=== PATIENT | male | born 1945 | race Caucasian/White ===

== ENCOUNTER 2021-12-04 14:18 | Day surgery (SDC) | payer OTHER ==
[2021-11-29 15:45] LABS: BASOPHILS % (AUTO) 0.6 % (0-1); EOSINOPHILS # (AUTO) 0.2 X10'3 (0-0.9); EOSINOPHILS % (AUTO) 2.5 % (0-6); LYMPHOCYTES # (AUTO) 1.7 X10'3 (1.1-4.8); LYMPHOCYTES % (AUTO) 25.8 % (21-51); MEAN CORPUSCULAR HEMOGLOBIN 32.2 PG (27.0-31.0); MEAN CORPUSCULAR VOLUME 97.6 FL (78-98); MEAN PLATELET VOLUME 8.2 FL (7.4-10.4); MONOCYTES # (AUTO) 0.6 X10'3 (0-0.9); MONOCYTES % (AUTO) 9.2 % (2-12); NEUTROPHILS # (AUTO) 4.2 X10'3 (1.8-7.7); NEUTROPHILS % (AUTO) 61.9 % (42-75); PRE OP HEMATOCRIT 40.8 % (42.0-52.0); PRE OP HEMOGLOBIN 13.5 g/dL (14.0-17.9); PRE OP PLATELET COUNT 254 X10'3 (140-440); RED BLOOD COUNT 4.18 X10'6 (4.70-6.10); RED CELL DISTRIBUTION WIDTH 14.4 % (11.5-14.5)
[2021-11-29 15:53] LABS: ALBUMIN 3.9 G/DL (3.4-5.0); ALBUMIN/GLOBULIN RATIO 1.4 (1.1-1.5); ALKALINE PHOSPHATASE 77 IU/L (46-116); BLOOD UREA NITROGEN 16 MG/DL (7-18); BUN/CREATININE RATIO 15.7 (5.4-32.0); CALCIUM 9.1 MG/DL (8.5-10.1); CHLORIDE 107 MMOL/L (99-107); CREATININE 1.02 MG/DL (0.60-1.10); PRE OP ALT 31 U/L (30-65); PRE OP ANION GAP 11 (8-16); PRE OP AST 28 U/L (10-37); PRE OP BILIRUB, TOTAL 0.2 MG/DL (0.0-1.0); PRE OP GLUCOSE 88 MG/DL (70-104); PRE OP POTASSIUM 4.7 MMOL/L (3.4-5.1); PRE OP SODIUM 145 MMOL/L (135-145); TOTAL CARBON DIOXIDE 27.5 MMOL/L (24-32); TOTAL PROTEIN 6.7 G/DL (6.4-8.2); eGFR 71 ML/MIN
[2021-12-04] VITALS (16 sets, daily range): BP systolic 134–152; BP diastolic 68–92
[~2021-12-04] VITALS: Ht 177.8 cm; Wt 68.0 kg
[~2021-12-04 14:18] MED LIST: AMLO2.5T2 PO; BUPR150T8 PO; albuterol 2.5 MG/3 ML nebule NEB ONE; cefazolin/dext.iso 2gm/50ml IV ONE; famotidine 20mg tablet PO ONE; ringers solution, lacted 1,000 ML IV SCH
[2021-12-04] MEDS ORDERED: hydrALAZINE 20mg/ml inj. IV PRN (14:55)
[2021-12-04] MEDS ORDERED: morphine 4 MG/ML inj SYRINge IV PRN (14:55)
[2021-12-04] MEDS ORDERED: labetalol 20mg/4ml (5mg/ml) syringe IV PRN (14:55)
[2021-12-04] MEDS ORDERED: ondansetron/PF 4mg/2ml inj IV PRN (14:55)
[2021-12-04] MEDS ORDERED: ringers solution, lacted 1,000 ML IV SCH (14:55)
[2021-12-04] MEDS ORDERED: morphine 2 MG/ML inj. syringe IV PRN (14:55)
[2021-12-04] MEDS ORDERED: fentaNYL/PF 50MCG/1 ML 2ML syringe IV PRN ×2 (14:55)
[2021-12-04] MEDS ORDERED: BUPIVAcaine 0.5% inj/PF 30 ML ONE (17:02)
[2021-12-04] MEDS ORDERED: LIDOcaine 1% 30ml preserv. free vial ONE (17:02)
[2021-12-04] MEDS ORDERED: neostigmine methylsulfate 1 MG/ML 10ml vial ONE (17:41)
[2021-12-04] MEDS ORDERED: dexamethasone sod phosphate 10mg/ml inj ONE (17:41)
[2021-12-04] MEDS ORDERED: sevoflurane 250ml liquid IH ONE (17:41)
[2021-12-04] MEDS ORDERED: midazolam 1 mg/ML 2ml injection ONE (17:49)
[2021-12-04] MEDS ORDERED: fentaNYL/PF 50MCG/1 ML 2ML syringe ONE (17:49)
[2021-12-04] MEDS ORDERED: propofol inj 20 ML IV ONE (17:55)
[2021-12-04] MEDS ORDERED: LIDOcaine 2% (20mg/ml) 5ml vial ONE (17:55)
[2021-12-04] MEDS ORDERED: rocuronium 10mg/ml inj IV ONE (17:56)
[2021-12-04] MEDS ORDERED: glycopyrrolate 0.2mg/ml inj ONE ×2 (17:57→17:59)
[2021-12-04] MEDS ORDERED: ondansetron/PF 4mg/2ml inj ONE (17:57)
--- NOTE | 2021-12-04 19:20 | NUR ---
Received from OR via [facility], accompanied by Anesthesiologist DR ELLER and report given by Anesthesiologist. PT DROWSY, NO S/S OF DISTRESS/DISCOMFORT. ABDOMEN W/3 LAP SITES W/BANDAIDS CDI. Addendum: 12/04/21 at 1946 by Keisha Patterson RN Amended: Links added.
[2021-12-04] MEDS ORDERED: HYDROcodone/acetaminophen 5mg/325mg tablet PO PRN (19:30)
--- NOTE | 2021-12-04 21:19 | NUR ---
PT AWAKE, VSS. REPORT TO RECEIVING ERNESTO CAMP.
--- NOTE | 2021-12-04 21:20 | NUR ---
ASSUMED CARE OF PT. VVS. AWAKE AND ALERT. BANDAIDS TO ABD CDI. ADB SOFT. PT DENIES PAIN AT THIS TIME. PO FLUIDS AND SNACK GIVEN. DENIES URGE TO VOID. IV LEFT HAND PATENT.
--- NOTE | 2021-12-04 22:10 | NUR ---
UP AMB TO BR, VOID STRONG STREAM LARGE AMT OF URINE WITHOUT DIFFICULTY. VVS. AND BANDAIDS CDI. PT DENIES PAIN. ABD SOFT. IV DC'D WITH CANNULA INTACT AND DSG APPLIED. REVIEWED D/C INSTRUCTIONS WITH PT WHO VERBALIZED UNDERSTANDING. D/C VIA W/C TO PVT AUTO WITH SON [place] TO RECEIVE. Addendum: 12/04/21 at 2222 by Estefany Hargrove RN Amended: Links added.
== END 2021-12-04 22:10 | disposition home or self-care (01) ==
LOC: PAS 14:18
PROVIDERS: ATTEND Surgery
DX: K40.90 Unilateral inguinal hernia, without obstruction or gangrene, not specified as recurrent (principal); F32.9 Major depressive disorder, single episode, unspecified; I10 Essential (primary) hypertension; F41.9 Anxiety disorder, unspecified; Z20.822 Contact with and (suspected) exposure to COVID-19; Z79.899 Other long term (current) drug therapy; Z90.79 Acquired absence of other genital organ(s); Z98.890 Other specified postprocedural states; F17.210 Nicotine dependence, cigarettes, uncomplicated; Z85.46 Personal history of malignant neoplasm of prostate
CPT/HCPCS: 36415; 49650; 71046; 80053; 82948; 85025; 93005; C1781; J0690; J1100; J2250; J2405; J2704; J2710; J3010; J3490; J7030; J7120; S0020; S2900; U0003; U0005; Z7506; Z7508; Z7512; A4215; A4618

== ENCOUNTER 2022-01-26 14:36 | Emergency (ER) | payer OTHER, MEDICARE ==
[~2022-01-26] VITALS: Ht 177.8 cm; Wt 72.0 kg
[~2022-01-26 14:36] MED LIST changes: -albuterol 2.5 MG/3 ML nebule NEB ONE; -cefazolin/dext.iso 2gm/50ml IV ONE; -famotidine 20mg tablet PO ONE; -ringers solution, lacted 1,000 ML IV SCH
[2022-01-26 14:45] VITALS: BP 142/74
[2022-01-26] MEDS ORDERED: LIDO700A32 TOP (15:11)
[2022-01-26] MEDS: LIDOcaine 5% patch TP SCH ×2 (15:38→16:06)
== END 2022-01-26 16:40 | disposition home or self-care (01) ==
LOC: ER 14:36
DX: S20.211A Contusion of right front wall of thorax, initial encounter (principal); I10 Essential (primary) hypertension; F17.200 Nicotine dependence, unspecified, uncomplicated; Z72.89 Other problems related to lifestyle; Z79.899 Other long term (current) drug therapy; W01.198A Fall on same level from slipping, tripping and stumbling with subsequent striking against other object, initial encounter; Y93.89 Activity, other specified; Y92.89 Other specified places as the place of occurrence of the external cause; Y99.8 Other external cause status
CPT/HCPCS: 71101; 99284

== ENCOUNTER 2023-04-01 10:25 | Outpatient (CLI) | payer OTHER, MEDICARE ==
[~2023-04-01 10:25] MED LIST changes: -AMLO2.5T2 PO; +AMLO5TAB16 PO; +ASCO-134 PO; -BUPR150T8 PO; +MECL-231 PO; +MULT-1085 PO; +PEG15DRO3 EACHEYE; +POLY17PO10 PO; +SERT-433 PO
== END 2023-04-01 23:59 | disposition home or self-care (01) ==
LOC: CARD DIAG 10:25
PROVIDERS: ATTEND Internal Medicine Cardiovascular Disease
DX: Z48.812 Encounter for surgical aftercare following surgery on the circulatory system (principal); I08.8 Other rheumatic multiple valve diseases; Z95.2 Presence of prosthetic heart valve
CPT/HCPCS: 93306

== ENCOUNTER 2024-04-15 09:40 | Emergency (ER) | payer OTHER, MEDICARE ==
[~2024-04-15] VITALS: Ht 175.3 cm; Wt 69.3 kg
[2024-04-15 09:46] VITALS: TEMP 97.1
[2024-04-15 11:04] LABS: BASOPHILS % (AUTO) 0.5 % (0-1); EOSINOPHILS # (AUTO) 0.3 X10'3 (0-0.9); HEMATOCRIT 37.3 % (42.0-52.0); HEMOGLOBIN 12.5 g/dl (14.0-17.9); LYMPHOCYTES # (AUTO) 1.6 X10'3 (1.1-4.8); LYMPHOCYTES % (AUTO) 24.2 % (21-51); MEAN CORPUSCULAR HEMOGLOBIN 32.1 PG (27.0-31.0); MEAN CORPUSCULAR HGB CONC 33.5 g/dL (33.0-36.5); MEAN PLATELET VOLUME 9.1 FL (7.4-10.4); MONOCYTES # (AUTO) 0.7 X10'3 (0-0.9); MONOCYTES % (AUTO) 10.1 % (2-12); NEUTROPHILS # (AUTO) 4.1 X10'3 (1.8-7.7); NEUTROPHILS % (AUTO) 60.2 % (42-75); PLATELET COUNT 150 X10'3 (140-440); RED BLOOD COUNT 3.89 X10'6 (4.70-6.10); RED CELL DISTRIBUTION WIDTH 14.2 % (11.5-14.5); WHITE BLOOD COUNT 6.8 X10'3 (4.5-11.0)
[2024-04-15 11:17] LABS: PROTHROMBIN TIME 10.9 SECONDS (9.0-12.0)
[2024-04-15] MEDS ORDERED: ATOR40TA72 PO (11:18)
[2024-04-15] MEDS ORDERED: CLOP75TA34 PO (11:19)
[2024-04-15 11:21] LABS: ALANINE AMINOTRANSFERASE 25 U/L (12-78); ALBUMIN 3.4 G/DL (3.4-5.0); ALBUMIN/GLOBULIN RATIO 1.2 (1.1-1.5); ALKALINE PHOSPHATASE 68 IU/L (46-116); ANION GAP 6 (8-16); ASPARTATE AMINO TRANSFERASE 21 U/L (10-37); BILIRUBIN,TOTAL 0.5 MG/DL (0.1-1.0); BLOOD UREA NITROGEN 10 MG/DL (7-18); BUN/CREATININE RATIO 10.6 (10.0-20.0); CALCIUM 8.6 MG/DL (8.5-10.1); CHLORIDE 110 MMOL/L (99-107); CREATININE 0.94 MG/DL (0.60-1.10); GLUCOSE 98 MG/DL (70-104); POTASSIUM 3.8 MMOL/L (3.5-5.1); SODIUM 143 MMOL/L (135-145); TOTAL CARBON DIOXIDE 26.6 MMOL/L (24-32); TOTAL PROTEIN 6.3 G/DL (6.4-8.2); eCRCL 63 ML/MIN; eGFR 78 ML/MIN
[2024-04-15] MEDS ORDERED: SERT-434 PO (11:21)
[2024-04-15] MEDS ORDERED: AMLO2.5T2 PO (11:25)
[2024-04-15] MEDS ORDERED: ASCO500C17 PO (11:28)
[2024-04-15] MEDS ORDERED: CEPH-585 PO (11:34)
[2024-04-15 11:54] VITALS: BP 149/84; PULSE 61; RESP 16; O2SAT 98
== END 2024-04-15 11:59 | disposition home or self-care (01) ==
LOC: ER 09:41
DX: L03.116 Cellulitis of left lower limb (principal); I10 Essential (primary) hypertension; Z79.899 Other long term (current) drug therapy; Z79.2 Long term (current) use of antibiotics; Z72.89 Other problems related to lifestyle
CPT/HCPCS: 36415; 80053; 85025; 85610; 93971; 99284

== ENCOUNTER 2025-07-14 10:41 | Inpatient (IN) | payer OTHER, MEDICARE ==
[~2025-07-14] VITALS: Ht 177.8 cm; Wt 61.6 kg
[~2025-07-14 10:41] MED LIST changes: +ATOR40TA72 PO; +CLOP75TA34 PO; -MECL-231 PO; -SERT-433 PO; +SERT-434 PO
--- NOTE | 2025-07-14 11:11 | ELECTROCARDIOGRAPH REPORT ---
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
[2025-07-14 11:29] LABS: MEAN PLATELET VOLUME 9.3 FL (7.4-10.4); RED CELL DISTRIBUTION WIDTH 14.6 % (11.5-14.5)
--- NOTE | 2025-07-14 11:38 | RADIOLOGY REPORT ---
CT CT HEAD INDICATION: Fall with closed head injury EXAM DATE: 07/14/2025 11:12 AM COMPARISON: None RADIATION DOSE: CTDIvol: 47 mGy, DLP: 788 mGy*cm PROCEDURE: CT scans of the head were obtained from the vertex to the skull base. Sagittal and coronal reconstructions were provided. All CT scans at this medical facility are performed using dose modulation techniques as appropriate to a performed exam including the following: Automated exposure control was utilized; adjustment of the MA and/or KV according to patient size; and use of iterative reconstruction technique. 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 There is sulcal and ventricular prominence. The brainshows normal morphology and cutler-white matter differentiation, without intracranial hemorrhage, extra-axial fluid collection, mass effect or acute large vessel infarct. The ventricles are normal in size. The basal cisterns are patent. The skull and visible facial bones are intact. The paranasal sinuses, mastoid air cells and middle ear cavities are well-aerated. The soft tissues of the scalp are unremarkable. 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 No acute intracranial abnormality.
--- NOTE | 2025-07-14 11:41 | Physician Documentation ---
History of Present Illness ~ Chief Complaint: Trauma Level 3 Stated Complaint: FALL HEAD STRIKE ON THINNERS Time Seen by MD: 10:54 Primary Medical Doctor: [facility] HPI Mr. Mckeon is an 80 y/o male who presents via EMS following a ground level fall. He is unable to provide any addititional details. No one here to provide details and it is unclear as to his baseline. He is alert and oriented, but unable to provide specifics as to why he fell or if there was an LoC. Neuro exam nonfocal and he is protecting his airway. Occurred: just prior to arrival Tetanus within 5 years?: Yes Medication Reconciliation Allergies: Coded Allergies: No Known Allergies (Unverified , 12/23/22) Scheduled Amlodipine Besylate (Amlodipine Besylate), 1 TAB PO DAILY, (Reported) Ascorbic Acid (Ascorbic Acid), 1 TAB PO DAILY, (Reported) Atorvastatin Calcium (Atorvastatin Calcium), 1 TAB PO DAILY, (Reported) Clopidogrel Bisulfate (Clopidogrel), 1 TAB PO DAILY, (Reported) Multivitamin (Multi Vitamin Daily), 1 TAB PO DAILY, (Reported) Sertraline HCl (Sertraline HCl), 1 TAB PO DAILY, (Reported) Scheduled PRN Peg 400/Hypromellose/Glycerin (Visine Tired Eye Relief Drop), 1 DROP EACHEYE PRN PRN for dry eyes, (Reported) Polyethylene Glycol 3350* (Miralax*), 1 PKT PO DAILY PRN for constipation, (Repo rted) Past Medical History Past Medical History: Hypertension Past Surgical History: noncontributory Alcohol Use: Occasionally Drug Use: none Lives In: Home Review of Systems All Other Systems at this time: Reviewed and Negative Physical Exam Vital Signs: RN Vital Signs have been reviewed: Yes, Temperature: 98.1, Source: Temporal, Heart Rate: 53, Respiratory Rate: 12, BP: 153/77, Pulse Oximetry: 97, Weight: 72.730 Oxygen Flow Rate: 0 General Appearance: alert, WD/WN, no apparent distress Head laceration to scalp (left of midline) Face: normal Eye Lid: normal inspection Pupils/EOM/Fundus: PERRLA Ears: normal inspection Nose: normal inspection Mouth: normal inspection Neck: non-tender Respiratory: lungs clear Chest: normal inspection Cardiovascular: normal peripheral pulses Gastrointestinal: normal palpation Rectal: deferred Back: normal inspection Pelvis: normal Skin: warm/dry 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, oriented to person, oriented to place Motor / Sensory: no motor deficit Cerebellar function exam: normal Thoughts/Hallucinations: normal thought pattern Best Eye Response: (4) open spontaneously Best Verbal Response: (4) confused conversation Best Motor Response: (6) obeys commands Procedures Laceration/Wound Repair : Anesthesia: none Undermining: none Foreign Body: not identified Repaired: skin Wound Repaired With: peter Tolerated Procedure Well?: yes, no complications Progress Results/Orders Results/Orders Orders - SANDRO COX MD Chest,Single View (07/14/25 10:58) Monitor (07/14/25 10:58) Saline Lock (07/14/25 10:58) Oxygen (07/14/25 10:58) Hs Troponin I W Calculations (07/14/25 12:58) Hs Troponin I W Calculations (07/14/25 13:58) Ct Head (07/14/25 11:09) Urinalysis, Cult If Indicated (07/14/25 11:14) Straight Cath For Urine Sample (07/14/25 11:14) Completed Orders - SANDRO COX MD Chest,Single View (07/14/25 10:58) Cbc/Diff (07/14/25 10:58) BMP (07/14/25 10:58) PBNP (07/14/25 10:58) Electrocardiogram (07/14/25 10:58) Hs Troponin I W Calculations (07/14/25 10:58) Ct Head (07/14/25 11:09) Vital Signs 07/14/25 10:50 Temp 98.1 Pulse 53 Resp 12 B/P (MAP) 153/77 Pulse Ox 97 O2 Flow Rate 0 Laboratory Tests Test 07/14/25 11:08 White Blood Count 6.4 Red Blood Count 4.02 L Hemoglobin 13.0 L Hematocrit 37.7 L Mean Corpuscular Volume 93.7 Mean Corpuscular Hemoglobin 32.4 H Mean Corpuscular Hemoglobin Concent 34.6 Red Cell Distribution Width 14.6 H Platelet Count 173 Mean Platelet Volume 9.3 Neutrophils (%) (Auto) 56.8 Lymphocytes (%) (Auto) 28.2 Monocytes (%) (Auto) 9.9 Eosinophils (%) (Auto) 4.6 Basophils (%) (Auto) 0.5 Neutrophils # (Auto) 3.6 Lymphocytes # (Auto) 1.8 Monocytes # (Auto) 0.6 Eosinophils # (Auto) 0.3 Basophils # (Auto) 0.0 CBC Comment Sodium Level 149 H Potassium Level 3.3 L Chloride Level 113 H Carbon Dioxide Level 29.1 Anion Gap 7 L Blood Urea Nitrogen 15 Creatinine 0.77 Estimated GFR/1.73 m2 > 90 BUN/Creatinine Ratio 19.5 Glucose Level 93 Calcium Level 8.4 L Troponin I High Sensitivity 10 Pro-B-Type Natriuretic Peptide 224 Albumin 3.4 Chemistry Comments EKG/XRAY/CT/US/VASC/MRI EKG : Intepreting Monitor?: Yes Indication: weakness EKG: NSR EKG Blocks: none Haskell: normal Hypertrophy: none Additional Comment EKG (as interpreted by me) Time obtained: 930 Time interpreted by me: 1109 Rate: 54 Rhythm: Junctional Haskell: Normal Intervals: Normal ST: Nonspecific ST changes Impression: Junctional rhythm with nonspecific T-wave abnormalities. Medical Decision Making Differential Dx:Considerations: Include: Closed head injury, Fracture(s), Cerebral contusion, Spine injury, Vascular injury, Abrasion(s), Contusion(s), Hematoma(s), Laceration(s), Encephalopathy Additional Comments Mr. 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 He is unclear as to what led to the fall. While here in the ED, he remained hemodynamically normal with ABC's intact and in NAD. He is afebrile and nontoxic. Neuro exam nonfocal. I reviewed his EKG and it shows a junctional rhythm but is without signs of acute myocardial injury or ischemia. Due to the fall with head trauma, he was sent for a STAT head CT. CT was without signs of an acute bleed, space-occupying lesion, or large territorial infarct. Lytes are within normal limits. No significant leukocytosis or left shift. H/H stable. Two (2) peter applied to scalp. His son arrived during his evaluation and reported that Mr. Mckeon is at his baseline mental status. He states that Mr. Mckeon c/o of feeling lightheaded yesterday and this continued today. No report of chest pain/pressure/palpitations or discomfort. No SOB or difficulty breathing. Prior to the fall, there were no c/o a HDZ, acute visual changes, or neck pain/stiffness. Mr. Mckeon fell today and hit his head on the coffee table. It is noted that his HR is in the 40's here in the ED. He will be admitted for close monitoring and ongoing evaluation. Departure Disposition: ADMITTED INPATIENT Admitted to Inpatient Unit: yes, to hospitalist Admission Level of Care: Med/Surg with Tele Impression: Primary Impression: Fall Additional Impression: Bradycardia Condition: Stable Referrals: NO PRIMARY CARE PROVIDER (PCP) Education Educated: Patient Educated regarding: diagnosis, treatment Signature Scribe Signature: N/A Attestation: N/A SANDRO COX MD Jul 14, 2025 11:41
[2025-07-14 11:42] LABS: CREATININE 0.77 MG/DL (0.60-1.10); PRO BRAIN NATRIURETIC PEPTIDE 224 PG/ML (0-450); TOTAL CARBON DIOXIDE 29.1 MMOL/L (24-32); eCRCL 79 ML/MIN; eGFR > 90 ML/MIN
--- NOTE | 2025-07-14 11:50 | RADIOLOGY REPORT ---
EXAM: DI CHEST,SINGLE VIEW Indication: CP Technique: Single frontal view of the chest was obtained Comparison: CHEST,SINGLE VIEW on DOS: 02/28/23, CHEST,TWO VIEWS on DOS: 02/24/23, CHEST,SINGLE VIEW on DOS: 12/30/22, CHEST,SINGLE VIEW on DOS: 12/29/22, CHEST,SINGLE VIEW on DOS: 12/28/22 FINDINGS: Lines and Tubes: None Lungs: No focal consolidation. Pleura: No effusion. No pneumothorax. Cardiomediastinal contours: Unremarkable. Atherosclerotic vascular calcifications of the thoracic aorta are noted. Bones: No acute osseous abnormality. IMPRESSION: No acute cardiopulmonary disease.
[2025-07-14 14:06] LABS: LEUKOCYTE ESTERASE ,URINE NEGATIVE (Neg); NITRITES, URINE NEGATIVE (Neg); OCCULT BLOOD,URINE NEGATIVE (Neg)
[2025-07-14 14:13] LABS: UA COLLECTION TYPE NON-SPECIFIED
[2025-07-14] MEDS ORDERED: magnesium hydroxide 30ml (MOM) UD suspension PO PRN (14:25)
[2025-07-14] MEDS ORDERED: mag hydrox/Alum hydrox/simeth 30ml oral suspension PO PRN (14:25)
[2025-07-14 19:00] VITALS: BP 161/75; PULSE 56; RESP 10
[2025-07-14] MEDS ORDERED: morphine 4 MG/ML inj SYRINge IV PRN (19:14)
[2025-07-14 20:00] VITALS: BP_SYST 181; BP_SYST 184; BP_DIAS 63; BP_DIAS 67; PULSE 50; PULSE 59
[2025-07-14] MEDS: docusate sod 100mg capsule PO SCH (20:00)
[2025-07-14] MEDS ORDERED: magnesium sulf-water 4G/100mL 100 ML IV PRN (21:30)
[2025-07-14] MEDS ORDERED: potassium Cl 40MEQ/1/2NS 520ml 520 ML IV PRN (21:30)
[2025-07-14] MEDS ORDERED: magnesium Cl slow-release 64mg tablet PO PRN (21:30)
[2025-07-14] MEDS ORDERED: magnesium sulf-water 2g/50mL 50 ML IV PRN (21:30)
[2025-07-14 22:00] VITALS: BP 184/63; PULSE 59; RESP 16; TEMP 98.2; O2SAT 96
[2025-07-14] MEDS: hydrALAZINE 20mg/ml inj. IV PRN (22:11)
[2025-07-14] MEDS: potassium Cl 20 mEq SR tablet PO PRN (22:13)
--- NOTE | 2025-07-14 22:27 | HISTORY AND PHYSICAL-Residence ---
History & Physical Providers to CC Resident Creating Document: RONA BUSTAMANTE RES ~ History of Present Illness Primary Medical Doctor: [facility] Reason for Admit\Complaint: Syncope History of Present Illness This is an 80-year-old pleasant male with past medical history of hypertension, ischemic stroke who came to the ER after a fall. According to the patient he stood up fast from his chair and he felt dizzy and fell down and hit his head. No loss of consciousness, no chest pain no palpitation, no jerking movements of the limbs, no urinary incontinence. He sustained a lacerated head injury. The lacerated wound was stapled in the ER and he has no more active bleeding. He occasionally feels dizzy when he moves fast since couple of months. He did not have this checked with his primary. No history of repeated falls. No history of weakness. Allergies: Coded Allergies: No Known Allergies (Unverified , 12/23/22) Home Medications Home Medications Active Reported Sertraline HCl 100 Mg Tablet 1 Tab PO DAILY 30 Days Clopidogrel (Clopidogrel Bisulfate) 75 Mg Tablet 1 Tab PO DAILY 30 Days Do not stop medication unless instructed by prescriber. Atorvastatin Calcium 40 Mg Tablet 1 Tab PO DAILY 30 Days Past Medical History Past Medical History Hypertension Ischemic stroke Patient does not remember his past history. According to him he is not diagnosed with any other comorbid condition. But he is on Plavix. CT shows previous stroke changes. This will talk to his son to have a clear idea. Past Surgical History Surgical History Comment He does not remember undergoing any surgery. We will talk to his son to know more. 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) Domestic Violence: Neg ROS All Other Systems: Reviewed and Negative Constitutional: Reports: weakness Eyes: Reports: no symptoms reported ENT: Reports: hearing loss Respiratory: Reports: no symptoms reported Cardiovascular: Reports: lightheadedness, syncope Gastrointestinal: Reports: no symptoms reported Genitourinary: Reports: no symptoms reported Male Genitalia: Reports: no symptoms reported Neurological: Reports: no symptoms reported Musculoskeletal: Reports: no symptoms reported Integumentary: Reports: no symptoms reported Allergic/Immunologic: Reports: no symptoms reported Hematologic/Lymphatic: Reports: no symptoms reported Endocrine: Reports: no symptoms reported Psychiatric: Reports: no symptoms reported Exam Vitals: Vital Signs Date Time Temp Pulse Resp B/P (MAP) Pulse Ox O2 Delivery O2 Flow Rate FiO2 07/14/25 22:11 46 07/14/25 16:28 98.1 10 165/80 (108) 97 0 General: General: Well alert, well oriented, not confused, not agitated, not in acute distress, well cooperated during the physical. HEENT: Lacerated wound on the head, 2 peter seen. No active bleed. Conjunctive are pink, sclerae clear, no icterus, pupil is equal in both sides, reactive to light, no ear discharge, no pharyngeal erythema or an edema. Neck: Supple, no JVD, no lymphadenopathy and thyromegaly. Chest: Equal air entry on both lungs, no added sounds, no wheeze. Cardiovascular: S1-S2 regular sinus rhythm and, regular rate, no gallops, no rubs, no murmurs Abdomen: No visible peristalsis, Bowel sounds present on auscultation, soft, nontender, no guarding, no rigidity Extremities: No obvious deformities, no pitting edema bilaterally, capillary refill intact, peripheral pulsations are intact on both sides Central Nervous System: No focal neurological deficits, no motor or sensory weakness in all 4 extremities, could move all 4 extremities, 2+ deep tendon reflexes, negative Babinski. Musculoskeletal: No joint swelling, deformities, inflammations, and no scoliosis and back tenderness Skin: Warm and dry. Diagnostic Data Last Recorded Lab Results: 07/14/25 1108 07/14/25 1108 Counseling Services Smoking & Tobacco Cessation: > 10 Minutes Advance Care Planning Advanced Care plannin - 30 Minutes (Full code) Additional Plan Assessment: 80-year-old pleasant male with past medical history of hypertension, ischemic stroke is admitted for syncopal episode most likely due to orthostatic hypotension. Plan: Syncope most likely due to orthostatic hypotension or symptomatic bradycardia Vitals: Blood pressure in 180s systolic, 90s diastolic Pulse rate in 40s to 50s. Maintaining oxygen saturation in room air Serial troponin negative, NT proBNP 224 EKG: Bradycardia, sinus rhythm, normal P wave, no ST segment changes, normal T- wave morphology Urinalysis, CBC, UA normal Chest x-ray: No acute cardiopulmonary disease. 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 No acute intracranial abnormality. Plan: Ordered orthostatic vitals, echo, hemoglobin A1c, lipid panel, carotid ultrasound TSH Withheld home medication amlodipine 5 mg p.o. daily in view of symptomatic bradycardia even though it is peripherally acting CCB Administered 1 dose of hydralazine 10 mg IV to reduce his blood pressure and to raise his heart rate Started him on lisinopril 20 mg p.o. daily, monitor vitals Fall risk precautions in place, ordered wound care for his lacerated wound in the scalp. Hypertensive emergency Blood pressure in 180s systolic with dizziness Started him on lisinopril 20 mg p.o. daily Administered 1 dose of hydralazine 10 mg IV to reduce his blood pressure and to raise his heart rate. Monitor vital Hypernatremia Sodium 149, no intervention Continue to monitor sodium levels Hypokalemia Potassium 3.3 On hypo/hyperkalemia protocol Code status: Full code DVT prophylaxis: SCDs Analgesia/sedation: Morphine/[place] p.r.n. Line/tube: PIV GI prophylaxis: None Nutrition: Regular diet PT: Ordered. Prognosis: Guarded Disposition: Admit to ortho with tele. Monitor blood pressure. Past history and surgical history to be obtained from his son. Rona Bustamante MD PGY1, Internal Medicine [facility] Date of Service: Jul 14, 2025 Billing Provider: KAT ADAMS MD Common Visit Codes: [id number] INP/OBS CARE (HIGH) Secondary Visit Codes: [id number] CARE PLAN 30 MINUTES RONA BUSTAMANTE, RES Jul 14, 2025 22:27 KAT ADAMS MD Jul 16, 2025 08:48
[2025-07-15 00:35] VITALS: BP 146/60; PULSE 56; O2SAT 99
[2025-07-15 00:43] VITALS: RESP 16; O2SAT 99
[2025-07-15 06:00] VITALS: BP 164/60; PULSE 50; RESP 14; TEMP 97.6; O2SAT 98
[2025-07-15 06:08] LABS: MEAN PLATELET VOLUME 10.4 FL (7.4-10.4); RED CELL DISTRIBUTION WIDTH 14.5 % (11.5-14.5)
[2025-07-15 06:15] LABS: INR 1.1 INR
[2025-07-15 06:33] LABS: CHOL/HDL RATIO 2.7 (0.00-4.99); CREATININE 0.59 MG/DL (0.60-1.10); LDL CHOLESTEROL 76 MG/DL (50-100); TOTAL CARBON DIOXIDE 28.1 MMOL/L (24-32); eCRCL 87 ML/MIN; eGFR > 90 ML/MIN
[2025-07-15] MEDS: K and/or MAG REPLACEMENT MC SCH (07:22)
[2025-07-15 08:00] VITALS: BP_SYST 126; BP_SYST 132; BP_SYST 160; BP_DIAS 61; BP_DIAS 64; BP_DIAS 68; PULSE 54; PULSE 55; PULSE 57
[2025-07-15 10:00] VITALS: BP 126/68; PULSE 55
--- NOTE | 2025-07-15 13:37 | VASCULAR REPORT ---
Indication: Syncope Technique: Real-time ultrasound images of the neck vessels with cutler-scale, color and wave Doppler were obtained. Comparison: None Findings: Moderate bilateral atherosclerotic plaque. The following peak systolic velocities were recorded in cm/sec: Right internal carotid: 109 Right common carotid: 76 Right external carotid: 59 Right internal/common carotid ratio: 1.4 Left internal carotid: 94 Left common carotid: 74 Left external carotid: 63 Left internal/common carotid ratio: 1.3 Right vertebral artery: Patent with normal antegrade direction of flow. Left vertebral artery: Patent with normal antegrade direction of flow. Impression: No hemodynamically significant stenosis by velocity criteria. Moderate atherosclerotic plaque bilaterally.
--- NOTE | 2025-07-15 16:13 | PROGRESS NOTE- Residence ---
Progress Note - Resident Providers to CC Resident Creating Document: LULA SANDOVAL RES ~ Antibiotic Timeout Antibiotic Ordered?: No Subjective Patient was seen and examined at the bedside. Patient looks a bit confused. Not complaining of any dizziness, palpitations, chest pain, shortness of breath. We contacted the patient's son for more details about his condition. Objective Vital Signs Date Time Temp Pulse Resp B/P (MAP) Pulse Ox O2 Delivery O2 Flow Rate FiO2 07/15/25 09:35 54 07/15/25 08:00 160/64 (96) 126/68 (87) 132/61 (84) 07/15/25 08:00 Room Air 07/15/25 06:00 97.6 14 98 07/14/25 16:28 0 Result Diagram: 07/15/2552407/15/25524 General: Well alert, well oriented, slightly confused and agitated, not in acute distress. HEENT: Lacerated wound on the head, 2 peter seen. No active bleed. Conjunctive are pink, sclerae clear, no icterus, pupil is equal in both sides, reactive to light, no ear discharge, no pharyngeal erythema or an edema. Neck: Supple, no JVD, no lymphadenopathy and thyromegaly. Chest: Equal air entry on both lungs, no added sounds, no wheeze. Cardiovascular: S1-S2 regular sinus rhythm and, regular rate, no gallops, no rubs, no murmurs Abdomen: No visible peristalsis, Bowel sounds present on auscultation, soft, nontender, no guarding, no rigidity Extremities: No obvious deformities, no pitting edema bilaterally, capillary refill intact, peripheral pulsations are intact on both sides Central Nervous System: No focal neurological deficits, no motor or sensory weakness in all 4 extremities, could move all 4 extremities, 2+ deep tendon reflexes, negative Babinski. Musculoskeletal: No joint swelling, deformities, inflammations, and no scoliosis and back tenderness Skin: Warm and dry. Coagulation Studies Laboratory Tests Test 07/15/25 05:25 Prothrombin Time 10.9 SECONDS (9.0-12.0) INR International Normalized Ratio 1.1 INR Coagulation Comments Plan Plan Syncope most likely due to orthostatic hypotension Pulse rate in 40s to 50s. Maintaining oxygen saturation in room air Serial troponin negative, NT proBNP 224 EKG: Bradycardia, sinus rhythm, normal P wave, no ST segment changes, normal T- wave morphology Urinalysis, CBC, UA normal Chest x-ray: No acute cardiopulmonary disease. 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 No acute intracranial abnormality. Orthostatic vitals positive-lying down 160/64, sitting 126/68, standing-132/61. echo, Lipid panel shows- cholesterol 150, triglycerides 123, LDL 76, HDL 56 TSH 4.19 ultrasound carotid- No hemodynamically significant stenosis by velocity criteria. Moderate atherosclerotic plaque bilaterally. home medication amlodipine 5 mg p.o. daily in view of symptomatic bradycardia even though it is peripherally acting CCB Administered 1 dose of hydralazine 10 mg IV to reduce his blood pressure and to raise his heart rate Started him on lisinopril 20 mg p.o. daily, monitor vitals Fall risk precautions in place, patient put on soft restraints due to increased agitation. ordered wound care for his lacerated wound in the scalp. Hypertensive emergency resolved Currently patient recording his systolic blood pressures in 150s to 160 Started him on lisinopril 20 mg p.o. daily Monitor vital Hypernatremia resolved Sodium 145, no intervention needed Continue to monitor sodium levels Mild hyperkalemia Potassium 5.5 Continue to monitor his labs Code status: Full code DVT prophylaxis: SCDs Analgesia/sedation: Morphine/[place] p.r.n. Line/tube: PIV GI prophylaxis: None Nutrition: Regular diet PT: Ordered. Prognosis: Guarded Lula Sandoval PGY-1 Date of Service: Jul 15, 2025 Billing Provider: KAT ADAMS MD Common Visit Codes: [id number] INP/OBS CARE(HIGH) LULA SANDOVAL, RES Jul 15, 2025 16:13 KAT ADAMS MD Jul 16, 2025 08:47
[2025-07-15] MEDS: multivitamins, therapeutics tablet PO SCH (17:59)
[2025-07-15] MEDS: lactose-reduced food (Ensure Enlive) - 237ml bottle PO SCH (18:00)
--- NOTE | 2025-07-15 19:11 | CARDIOLOGY REPORT ---
APPROVED REPORT EXAM: Comprehensive 2D, Doppler, and color-flow Echocardiogram. 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 264.3 cm/s AoV VTI 51.5 cm AO Peak GR. 27.9 mmHg AO Mean GR. 15 mmHg LVOT VTI 29.75 cm LVOT Peak Joo. 148.1 cm/s JA(VTI)/BSA 2.39 cm2/m2 JA (VTI) 2.39 cm2 AV DI 0.58 % Mitral Valve MV E Velocity 159.7 cm/s MV Peak Gr. 10 mmHg MV DECEL TIME 392 ms MV A Velocity 179.8 cm/s MV Mean Gr. 4 mmHg MV PHT 132 ms E/A Ratio 0.9 MVA (PHT) 1.67 cm2 MV VMax 159.7 cm/s MV VMean 97.2 cm/s MVA VTI 1.92 cm2 MV VTI 64.1 cm TDI Lateral E' P. V 8.43 cm/s E/Lateral E' 18.9 Tricuspid Valve TR P. Velocity 282 cm/s RAP ESTIMATE 10 mmHg TR Peak Gr. 32 mmHg RVSP 42 mmHg LEFT VENTRICLE Normal LV size and wall thickness. Overall systolic function is normal. LVEF is 55-60%. RIGHT VENTRICLE RV is normal size and function. Elevated right heart pressures with an RVSP of 42 mmHg. ATRIA The left atrium size is normal. AORTIC VALVE 23 mm Marcus Catie 3 Ultra Resilia bioprosthetic TAVR appears well seated with normal function. JA is measured at 2.39 cmsq. Peak / mean gradients of 28 / 15 mmHG. Peak velocity is measured at 2.64 m/sec. No insufficiency. MITRAL VALVE Moderate mitral annular calcification with mild stenosis. Peak / mean gradients are 10 / 4 mmHg. Peak velocity is measured 1.60 m/sec. Trace regurgitation. TRICUSPID VALVE The tricuspid valve is normal in structure with trace regurgitation. PULMONIC VALVE Pulmonic valve is grossly normal in structure with physiologic insufficiency. GREAT VESSELS The aortic root is normal in size. The IVC is normal in size and collapses >50% with inspiration. PERICARDIUM Normal pericardium. No effusion. Other Information Study Quality: Adequate Conclusion Normal LV size and wall thickness. Overall systolic function is normal. LVEF is 55-60%. RV is normal size and function. Elevated right heart pressures with an RVSP of 42 mmHg. The left atrium size is normal. 23 mm Marcus Catie 3 Ultra Resilia bioprosthetic TAVR appears well seated with normal function. JA is measured at 2.39 cmsq. Peak / mean gradients of 28 / 15 mmHG. Peak velocity is measured at 2.64 m/sec. No insufficiency. Moderate mitral annular calcification with mild stenosis. Peak / mean gradients are 10 / 4 mmHg. Peak velocity is measured 1.60 m/sec. Trace regurgitation. The tricuspid valve is normal in structure with trace regurgitation. Pulmonic valve is grossly normal in structure with physiologic insufficiency. Normal pericardium. No effusion.
[2025-07-15] MEDS: nicotine 14mg patch - 24hr TD SCH (19:53)
[2025-07-15 20:00] VITALS: BP 160/79; PULSE 61
[2025-07-15] MEDS: diazepam inj 5 MG/ML inj. IV ONE (20:41)
[2025-07-16 06:00] VITALS: BP 101/50; PULSE 67; RESP 14; TEMP 97.9; O2SAT 90
[2025-07-16 06:27] LABS: MEAN PLATELET VOLUME 9.4 FL (7.4-10.4); RED CELL DISTRIBUTION WIDTH 14.4 % (11.5-14.5)
[2025-07-16 06:35] LABS: CREATININE 0.70 MG/DL (0.60-1.10); TOTAL CARBON DIOXIDE 28.2 MMOL/L (24-32); eCRCL 73 ML/MIN; eGFR > 90 ML/MIN
[2025-07-16 08:00] VITALS: BP_SYST 104; BP_SYST 116; BP_SYST 117; BP_DIAS 52; BP_DIAS 54; PULSE 54; PULSE 56; PULSE 66
[2025-07-16 10:00] VITALS: BP 134/80; PULSE 60; RESP 15; TEMP 97.4; O2SAT 96
[2025-07-16] MEDS ORDERED: normal saline 500ml IV soln 500 ML IV ONE (12:00)
[2025-07-16] MEDS: normal saline 500ml IV soln 500 ML IV ONE (12:38)
--- NOTE | 2025-07-16 17:28 | PROGRESS NOTE- Residence ---
Progress Note - Resident Providers to CC Resident Creating Document: RONA BUSTAMANTE, MAGALIE ~ Central Line/PICC still needed: N\A Landaverde-Non Protocol Landa[place]de Indications Met/Not Met: F/C Indications Not Met Antibiotic Timeout Antibiotic Ordered?: No Subjective Patient was seen and examined at the bedside. Patient was drowsy after haloperidol 5 mg and olanzapine 2.5 mg early in the morning. Apparently was agitated and trying to crawl out of the bed throughout the night. We contacted the patient's son for more details about his condition. Patient's son wants long-term facility since he is no longer able to take care of his father at home. Objective Vital Signs Date Time Temp Pulse Resp B/P (MAP) Pulse Ox O2 Delivery O2 Flow Rate FiO2 07/16/25 10:00 97.4 60 15 134/80 (98) 96 Room Air 07/14/25 16:28 0 Result Diagram: 07/16/25 0554 07/16/25 0554 General: Drowsy, well oriented, slightly confused and agitated, not in acute distress. HEENT: Lacerated wound on the head, 2 peter seen. No active bleed. Conjunctive are pink, sclerae clear, no icterus, pupil is equal in both sides, reactive to light, no ear discharge, no pharyngeal erythema or an edema. Neck: Supple, no JVD, no lymphadenopathy and thyromegaly. Chest: Equal air entry on both lungs, no added sounds, no wheeze. Cardiovascular: S1-S2 regular sinus rhythm and, regular rate, no gallops, no rubs, no murmurs Abdomen: No visible peristalsis, Bowel sounds present on auscultation, soft, nontender, no guarding, no rigidity Extremities: No obvious deformities, no pitting edema bilaterally, capillary refill intact, peripheral pulsations are intact on both sides Central Nervous System: No focal neurological deficits, no motor or sensory weakness in all 4 extremities, could move all 4 extremities, 2+ deep tendon reflexes, negative Babinski. Musculoskeletal: No joint swelling, deformities, inflammations, and no scoliosis and back tenderness Skin: Warm and dry. Coagulation Studies Laboratory Tests Test 07/15/25 05:25 Prothrombin Time 10.9 SECONDS (9.0-12.0) INR International Normalized Ratio 1.1 INR Coagulation Comments Assessment Assessment 80-year-old pleasant male with past medical history of hypertension, ischemic stroke is admitted for syncopal episode most likely due to orthostatic hypotension. Plan Plan Syncope most likely due to orthostatic hypotension 07/14/2025: Pulse rate in 40s to 50s. Maintaining oxygen saturation in room air Serial troponin negative, NT proBNP 224 EKG: Bradycardia, sinus rhythm, normal P wave, no ST segment changes, normal T- wave morphology Urinalysis, CBC, UA normal Chest x-ray: No acute cardiopulmonary disease. 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 No acute intracranial abnormality. 07/15/2025: Orthostatic vitals positive-lying down 160/64, sitting 126/68, standing-132/61. echo, Lipid panel shows- cholesterol 150, triglycerides 123, LDL 76, HDL 56 TSH 4.19 ultrasound carotid- No hemodynamically significant stenosis by velocity criteria. Moderate atherosclerotic plaque bilaterally. Continue home medication amlodipine 5 mg p.o. daily in view of symptomatic bradycardia even though it is peripherally acting CCB Administered 1 dose of hydralazine 10 mg IV to reduce his blood pressure and to raise his heart rate Started him on lisinopril 20 mg p.o. daily, monitor vitals Fall risk precautions in place, patient put on soft restraints due to increased agitation. ordered wound care for his lacerated wound in the scalp. 07/16/2025: 1 dose of hydralazine 10 mg IV was administered early in the morning because his systolic blood pressure was above 160. Continue lisinopril 20 mg p.o. daily and amlodipine 5 mg p.o. daily Orthostatic vitals negative after 500 bolus normal saline. Continue 100 mL/hour IV fluids. Hypertensive emergency resolved Currently patient recording his systolic blood pressures in 150s to 160 Started him on lisinopril 20 mg p.o. daily Monitor vital Hypernatremia resolved Sodium 145, no intervention needed Continue to monitor sodium levels 07/16/2025: Sodium 150, continue monitor sodium levels after hydration. Mild hyperkalemia Potassium 5.5 Continue to monitor his labs 07/16/2025: Hyperkalemia resolved, potassium 3.9 On hypokalemia/hyperkalemia protocol Code status: Full code DVT prophylaxis: SCDs Analgesia/sedation: Morphine/Red Jacket p.r.n. Line/tube: PIV GI prophylaxis: None Nutrition: Regular diet PT: Recommended home with assistance Prognosis: Guarded Rona Bustamante [facility]. PGY1 [facility] Date of Service: Jul 16, 2025 Billing Provider: KAT ADAMS MD Common Visit Codes: [id number] INP/OBS CARE(HIGH) RONA BUSTAMANTE, RES Jul 16, 2025 17:28 KAT ADAMS MD Jul 17, 2025 08:43
[2025-07-16 18:00] VITALS: PULSE 50; RESP 19; O2SAT 97
[2025-07-16 20:00] VITALS: BP_SYST 161; BP_SYST 170; BP_SYST 171; BP_DIAS 60; BP_DIAS 67; BP_DIAS 69; PULSE 54; PULSE 56; PULSE 58; RESP 16; O2SAT 95
[2025-07-16 22:00] VITALS: BP 161/69; PULSE 58; RESP 14; TEMP 98.1; O2SAT 98
[2025-07-17 06:00] VITALS: BP 134/65; PULSE 56; RESP 14; TEMP 98.1; O2SAT 98
[2025-07-17 06:54] LABS: MEAN PLATELET VOLUME 9.6 FL (7.4-10.4); RED CELL DISTRIBUTION WIDTH 14.5 % (11.5-14.5)
[2025-07-17 07:29] LABS: CREATININE 0.73 MG/DL (0.60-1.10); TOTAL CARBON DIOXIDE 25.8 MMOL/L (24-32); eCRCL 70 ML/MIN; eGFR > 90 ML/MIN
[2025-07-17 08:00] VITALS: BP_SYST 74; BP_SYST 84; BP_SYST 85; BP_DIAS 34; BP_DIAS 41; BP_DIAS 45; PULSE 61; PULSE 63; RESP 17; O2SAT 95
[2025-07-17] MEDS: morphine 4 MG/ML inj SYRINge IV PRN (09:01)
[2025-07-17] MEDS: potassium Cl 20 mEq SR tablet PO PRN (09:02)
[2025-07-17] MEDS: ondansetron/PF 4mg/2ml inj IV PRN (09:05)
[2025-07-17] MEDS ORDERED: LISI20TA28 PO (10:31)
[2025-07-17 10:40] VITALS: BP 102/45; PULSE 68; RESP 16; TEMP 98.1; O2SAT 95
--- NOTE | 2025-07-17 13:37 | DISCHARGE SUMMARY-Residence ---
Discharge Summary Providers to CC Resident Creating Document: RONA WU, RES ~ Discharge Summary Admission Diagnosis: bradycardia Hospital Course DATE OF ADMISSION: 07/14/2025 DATE OF DISCHARGE: 07/17/2025 Discharge Diagnosis\Comment: Syncope due to orthostatic hypotension Hypertension Dyslipidemia History of Ischemic stroke Operations\Procedures: None Consultants: None Complications: None Condition on DC: Stable New Medications: Lisinopril (Lisinopril) 20 Mg Tablet 1 TAB PO DAILY, #30 TAB Continued Medications: Atorvastatin Calcium (Atorvastatin Calcium) 40 Mg Tablet 1 TAB PO DAILY for 30 Days, #30 TAB 0 Refills Clopidogrel Bisulfate (Clopidogrel) 75 Mg Tablet 1 TAB PO DAILY for 30 Days, #30 TAB 0 Refills Do not stop medication unless instructed by prescriber. Sertraline HCl (Sertraline HCl) 100 Mg Tablet 1 TAB PO DAILY for 30 Days, #30 TAB 0 Refills Discharge Summary: History of present illness: This is an 80-year-old pleasant male with past medical history of hypertension, ischemic stroke who came to the ER after a fall. According to the patient he stood up fast from his chair and he felt dizzy and fell down and hit his head. No loss of consciousness, no chest pain n o palpitation, no jerking movements of the limbs, no urinary incontinence. He sustained a lacerated head injury. The lacerated wound was stapled in the ER and he has no more active bleeding. He mentioned that he occasionally feels dizzy when he moves fast since a couple of months. He did not have this checked with his primary. No history of repeated falls. No history of weakness. Hospital course: In the hospital, he had high blood pressure reading of systolic of 160 with a heart rate in 40s to 50s. He received hydralazine 10 mg IV p.r.n. for his high blood pressure. His home medication amlodipine 5 mg p.o. daily was changed to lisinopril 20 mg p.o. daily. He does have positive orthostatic hypotension which was resolved with IV fluids. His CT scan was negative for hemorrhage. His echocardiogram was normal with an ejection fraction of 55% and carotid artery ultrasound did not show any significant stenosis. He was given 1 dose of haloperidol 5 mg and olanzapine 2.5 mg for his agitation. PT cleared him for home discharge with assistance. His children want long-term facility for him. He set up for an interview at home for long- term facility. He is hemodynamically stable and symptomatically better and hence being discharged. Vital Signs Date Time Temp Pulse Resp B/P (MAP) Pulse Ox O2 Delivery O2 Flow Rate FiO2 07/17/25 10:40 98.1 68 16 102/45 (64) 95 Room Air 07/16/25 20:00 0.0 Laboratory Tests Test 07/16/25 05:54 07/17/25 06:07 07/17/25 08:49 White Blood Count 7.3 X10'3 5.9 X10'3 Red Blood Count 4.39 X10'6 4.10 X10'6 Hemoglobin 14.0 g/dl 13.2 g/dl Hematocrit 41.2 % 38.4 % Mean Corpuscular Volume 93.8 FL 93.5 FL Mean Corpuscular Hemoglobin 31.9 PG 32.1 PG Mean Corpuscular Hemoglobin Concent 34.0 g/dL 34.4 g/dL Red Cell Distribution Width 14.4 % 14.5 % Platelet Count 171 X10'3 163 X10'3 Mean Platelet Volume 9.4 FL 9.6 FL Neutrophils (%) (Auto) 60.9 % 63.5 % Lymphocytes (%) (Auto) 25.3 % 22.0 % Monocytes (%) (Auto) 10.3 % 10.1 % Eosinophils (%) (Auto) 3.3 % 3.8 % Basophils (%) (Auto) 0.2 % 0.6 % Neutrophils # (Auto) 4.4 X10'3 3.8 X10'3 Lymphocytes # (Auto) 1.8 X10'3 1.3 X10'3 Monocytes # (Auto) 0.7 X10'3 0.6 X10'3 Eosinophils # (Auto) 0.2 X10'3 0.2 X10'3 Basophils # (Auto) 0.0 X10'3 0.0 X10'3 CBC Comment Sodium Level 150 MMOL/L 147 MMOL/L Potassium Level 3.9 MMOL/L 3.3 MMOL/L Chloride Level 115 MMOL/L 113 MMOL/L Carbon Dioxide Level 28.2 MMOL/L 25.8 MMOL/L Anion Gap 7 8 Blood Urea Nitrogen 12 MG/DL 17 MG/DL Creatinine 0.70 MG/DL 0.73 MG/DL Estimated GFR/1.73 m2 > 90 ML/MIN > 90 ML/MIN BUN/Creatinine Ratio 17.1 23.3 Glucose Level 109 MG/DL 88 MG/DL Calcium Level 8.9 MG/DL 8.5 MG/DL Magnesium Level 2.3 MG/DL 2.0 MG/DL Albumin 3.3 G/DL 3.0 G/DL Chemistry Comments Glucometer 133 mg/dl Imaging 07/14/2025: Chest x-ray: No acute cardiopulmonary disease. 07/14/2028: Head CT: Right parietal lobe encephalomalcia from old infarct. No acute intracranial abnormality. 07/15/2025: Carotid Ultrasound: No hemodynamically significant stenosis by velocity criteria. Moderate atherosclerotic plaque bilaterally. 07/15/2025: Normal LV size and wall thickness. Overall systolic function is normal. LVEF is 55-60%. RV is normal size and function. Elevated right heart pressures with an RVSP of 42 mmHg. The left atrium size is normal. 23 mm Marcus Catie 3 Ultra Resilia bioprosthetic TAVR appears well seated with normal function. JA is measured at 2.39 cmsq. Peak / mean gradients of 28 / 15 mmHG. Peak velocity is measured at 2.64 m/sec. No insufficiency. Moderate mitral annular calcification with mild stenosis. Peak / mean gradients are 10 / 4 mmHg. Peak velocity is measured 1.60 m/sec. Trace regurgitation. The tricuspid valve is normal in structure with trace regurgitation. Pulmonic valve is grossly normal in structure with physiologic insufficiency. Normal pericardium. No effusion. Physical exam on discharge: General: Drowsy, well oriented, slightly confused and agitated, not in acute distress. HEENT: Lacerated wound on the head, 2 peter seen. No active bleed. Conjunctive are pink, sclerae clear, no icterus, pupil is equal in both sides, reactive to light, no ear discharge, no pharyngeal erythema or an edema. Neck: Supple, no JVD, no lymphadenopathy and thyromegaly. Chest: Equal air entry on both lungs, no added sounds, no wheeze. Cardiovascular: S1-S2 regular sinus rhythm and, regular rate, no gallops, no rubs, no murmurs Abdomen: No visible peristalsis, Bowel sounds present on auscultation, soft, nontender, no guarding, no rigidity Extremities: No obvious deformities, no pitting edema bilaterally, capillary refill intact, peripheral pulsations are intact on both sides Central Nervous System: No focal neurological deficits, no motor or sensory weakness in all 4 extremities, could move all 4 extremities, 2+ deep tendon reflexes, negative Babinski. Musculoskeletal: No joint swelling, deformities, inflammations, and no scoliosis and back tenderness Skin: Warm and dry. Discharge instructions: Follow up with the PCP in 1-2 week Remove peter in 1 week, keep the area dry and clean. Your blood pressure medication has been changed from amlodipine 5 mg p.o. daily to Lisinopril 20 mg p.o. daily Continue previous home medication Atorvastatin 40 mg p.o. daily Clopidogrel 75 mg p.o. daily Sertraline 100 mg p.o. daily Visit ER immediately in case of any acute emergencies including syncope, chest pain, palpitation, headache, decreased level of activity. *Problems/Diagnosis: (1) Hypertension Status: Chronic (2) Dyslipidemia Status: Chronic (3) Syncope Status: Acute (4) Orthostatic hypotension Status: Acute (5) Ischemic stroke Status: Chronic Total Time Spent on D/C: > 30 Minutes Counseling Services Smoking & Tobacco Cessation: > 10 Minutes Date of Service: Jul 17, 2025 Billing Provider: KAT ADAMS MD Common Visit Codes: [id number] DISCH DAY >30min RONA WU, MAGALIE Jul 17, 2025 13:37 KAT ADAMS MD Jul 19, 2025 08:00
== END 2025-07-17 16:02 | disposition home health service (06) | DRG 312 ==
LOC: ER 10:42 → ED HOLD 14:28 → ORTHO 4S 19:01
PROVIDERS: ADMIT Internal Medicine; ATTEND Internal Medicine
PROC: 0HQ0XZZ Repair Scalp Skin, External Approach (ICD-10-PCS; principal; 2025-07-14)
DX: I95.1 Orthostatic hypotension (principal); I16.1 Hypertensive emergency; E87.0 Hyperosmolality and hypernatremia; I10 Essential (primary) hypertension; E78.5 Hyperlipidemia, unspecified; F17.210 Nicotine dependence, cigarettes, uncomplicated; E87.6 Hypokalemia; E87.5 Hyperkalemia; I65.23 Occlusion and stenosis of bilateral carotid arteries; R00.1 Bradycardia, unspecified; S01.01XA Laceration without foreign body of scalp, initial encounter; W18.39XA Other fall on same level, initial encounter; Y93.89 Activity, other specified; Y92.89 Other specified places as the place of occurrence of the external cause; Y99.8 Other external cause status; Z86.73 Personal history of transient ischemic attack (TIA), and cerebral infarction without residual deficits; Z79.899 Other long term (current) drug therapy; Z79.02 Long term (current) use of antithrombotics/antiplatelets; Z82.49 Family history of ischemic heart disease and other diseases of the circulatory system; Z71.6 Tobacco abuse counseling
CPT/HCPCS: 36415; 70450; 71045; 80048; 80061; 81003; 82948; 83036; 83735; 83880; 84443; 84484; 85025; 85610; 87081; 93005; 93306; 93880; 96374; 97110; 97116; 97162; 97530; 99285; A6258; A6590; C1758; G0378; J0360; J2270; J2405; J3360; J7030; J7040